=== PATIENT | female | born 1940 | race Caucasian/White ===

== ENCOUNTER 2021-05-09 11:23 | Outpatient (CLI) | payer OTHER, SELFPAY ==
--- NOTE | ~2021-05-09 | XR_ITS ---
XR chest 2V 05/09/2021 11:47 Indication: Pneumonia. Covid infection. Procedure: PA and lateral views of the chest Comparison: No prior studies for comparison. Findings: Cardiomegaly. There is diffuse interstitial infiltrates bilaterally with There is calcified granuloma in the left midlung. No pleural effusion or pneumothorax. Impression: 1: . Diffuse bilateral interstitial infiltrates which may represent edema or pneumonia. Reviewed, dictated and finalized at location A. Impression: 1: . Diffuse bilateral interstitial infiltrates which may represent edema or pn eumonia.
== END 2021-05-09 11:24 | disposition home or self-care (01) ==
PROVIDERS: PCP Internal Medicine; Visit Provider Internal Medicine
DX: U07.1 COVID-19 (principal); J12.82 Pneumonia due to coronavirus disease 2019; R91.8 Other nonspecific abnormal finding of lung field
CPT/HCPCS: 71046

== ENCOUNTER 2023-01-09 12:01 | Outpatient (CLI) | payer OTHER, SELFPAY ==
--- NOTE | ~2023-01-09 | XR_ITS ---
EXAMINATION: XR chest 2V DATE: 01/09/2023 12:24 INDICATION: Cough and shortness of breath TECHNIQUE: Frontal and lateral views of the chest are obtained COMPARISON: 05/09/2021 FINDINGS: There is mild atelectasis of the left lung base. A calcified nodule of the left upper lobe is consistent with old granulomatous disease. A mild diffuse interstitial pattern is present. No pleu ral effusion or pneumothorax. The cardiomediastinal silhouette is normal. There is moderate thoracic spondylosis. IMPRESSION: 1. Mild diffuse interstitial pattern which could reflect pulmonary edema. Reviewed, dictated and finalized at location F. [employer]
== END 2023-01-09 12:02 | disposition home or self-care (01) ==
PROVIDERS: PCP Internal Medicine
DX: R05.1 Acute cough (principal); R91.8 Other nonspecific abnormal finding of lung field
CPT/HCPCS: 71046